=== PATIENT | female | born 1935 | race Caucasian/White ===

== ENCOUNTER 2019-03-25 11:06 | Emergency (ER) | payer OTHER ==
[2019-03-25] MEDS ORDERED: ACETAMINOPHEN 325 MG TABLET ONE (12:29)
[2019-03-25] MEDS ORDERED: TETANUS & DIPHTHERIA TOX,ADULT 0.5 ML VIAL ONE (12:29)
--- NOTE | 2019-03-25 13:10 | RAD REPORT ---
EXAM DESCRIPTION: RAD - Foot Left 3 View - 03/25/2019 12:57 pm CLINICAL HISTORY: Left Foot pain FINDINGS: Mildly displaced fractures involve the bases of the second, third fourth metatarsals. Small bony density lies adjacent to medial cuneiform bone which may represent a small avulsion fractu re No dislocation noted. Bones are osteoporotic
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
[2019-03-25 14:28] VITALS: BP 128/78; TEMP 97.8; O2SAT 99
== END 2019-03-25 14:19 | disposition home or self-care (01) ==
LOC: ER 11:06
PROC: 2W3RX1Z Immobilization of Left Lower Leg using Splint (ICD-10-PCS; principal; 2019-03-25)
DX: S92.322A Displaced fracture of second metatarsal bone, left foot, initial encounter for closed fracture (principal); S92.332A Displaced fracture of third metatarsal bone, left foot, initial encounter for closed fracture; S92.342A Displaced fracture of fourth metatarsal bone, left foot, initial encounter for closed fracture; V09.20XA Pedestrian injured in traffic accident involving unspecified motor vehicles, initial encounter; Y93.9 Activity, unspecified; Y92.89 Other specified places as the place of occurrence of the external cause; Z88.0 Allergy status to penicillin; Z88.6 Allergy status to analgesic agent
CPT/HCPCS: 90471; 90714; 99284

== ENCOUNTER 2024-03-05 19:13 | Emergency (ER) | payer OTHER ==
[2024-03-05] MEDS ORDERED: NA CHLORIDE 0.9% 1,000 ML ONE (19:34)
[2024-03-05 19:36] LABS: Absolute Basophils 0.1 K/uL (0-0.5); Absolute Eosinophils 0.1 K/uL (0-0.5); Absolute Lymphocytes (CBC) 1.5 K/uL (0.7-4.9); Absolute Monocytes 0.9 K/uL (0.1-1.3); Absolute Neutrophil 6.7 K/uL (1.8-8.0); Basophils % 0.6 % (0-1.3); Eosinophils % 1.2 % (0-4.4); Hematocrit 38.1 % (36.0-45.0); Hemoglobin 13.1 g/dL (12.0-15.0); Lymphocytes % 16.6 % (15.3-44.8); MCH 32.7 pg (27.0-35.0); MCHC 34.4 g/dL (32.0-36.0); MPV 7.6 fL (7.6-11.3); Monocytes % 9.5 % (3.3-12.3); Neutrophils % 72.1 % (41.7-73.7); Platelets 311 thou/uL (152-406); RBC Red Blood Cell Count 4.01 M/uL (3.86-4.86)
[2024-03-05 19:55] LABS: Albumin 3.7 g/dL (3.4-5.0); Albumin/Globulin Ratio 1.3 (1.1-1.8); Anion Gap 8.6 mEq/L (5.0-15.0); Bilirubin Direct 0.2 mg/dL (0-0.2); Bilirubin Indirect, Calculated 0.6 mg/dL (0.2-0.8); Bilirubin Total 0.8 mg/dL (0.2-1.0); Globulin 2.8 g/dL (2.3-3.5); Potassium 3.6 mEq/L (3.5-5.1); Protein, Total 6.5 g/dL (6.4-8.2); Troponin High Sensitivity 11.4 pg/mL (<58.9)
[2024-03-05 20:36] LABS: Specific Gravity 1.029 (1.005-1.030); Sqamous Epithelial <5 /HPF (None Seen); Urine Bacteria None Seen /HPF (<20); Urine Bilirubin NEGATIVE (Negative); Urine Blood Negative (Negative); Urine Clarity Extremely Turbid (Clear); Urine Color Yellow (Yellow); Urine Crystals Unidentified Few /HPF (None Seen); Urine Culture Reflex Order NOT NEEDED; Urine Glucose NEGATIVE (Negative); Urine Ketones TRACE (Negative); Urine Micro Reflex YN NO BILL MICROSCOPIC; Urine Mucus 3+ /HPF (None Seen); Urine Nitrite NEGATIVE (Negative); Urine Protein 2+ (Negative); Urine RBC <5 /HPF (None Seen); Urine Urobilinogen 1+ (Normal); Urine WBC <5 /HPF (<5); Urine Yeast (Budding) Trace /HPF (None Seen); Urine pH 5.5 (5.0-7.0)
--- NOTE | 2024-03-05 21:29 | RAD REPORT ---
EXAMINATION: ONE VIEW CHEST XR CLINICAL INDICATION: Female, 89 years old.,near syncope TECHNIQUE: Frontal chest projection is submitted. Examination is limited by patient positioning and t echnique. COMPARISON: No prior exam. FINDINGS: The lungs are well inflated and clear. Elevation of the right hemidiaphragm. No pneumothorax or sizab le effusion. The heart is normal in size. Mediastinal contours are unremarkable. IMPRESSION: No acute intrathoracic abnormalities.
--- NOTE | 2024-03-05 21:31 | RAD REPORT ---
EXAM: CT Head Brain Wo Cont HISTORY: ams COMPARISON: None TECHNIQUE: Multiple contiguous axial images were obtained for a CT of the brain without contrast. Sag ittal and coronal reformats were performed. One or more of the following dose reduction techniques were used: Automated exposure control, adjus tment of the mA and kV according to patient size, and iterative reconstruction. Unless otherwise specified, incidental findings do not require dedicated imaging follow-up. FINDINGS: No evidence of hydrocephalus, intracranial hemorrhage, or extra-axial fluid collection. Mild brain atrophy with mild periventricular and deep white matter chronic microvascular ischemic ch anges present. The calvarium is intact. The visualized paranasal sinuses and mastoid air cells are essentially clear . IMPRESSION: No evidence of acute intracranial abnormality.
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
--- NOTE | 2024-03-05 22:41 | EDPHYS ---
Physician Documentation [facility] Name: Aurora Hernandez Age: 89 yrs Sex: Female : 1935 Arrival Date: 03/05/2024 Time: 19:13 Bed 3 Private MD: ED Physician Héctor Kathleen HPI: 03/05 19:48 This 89 yrs old Female presents to ER via EMS with complaints of Near Syncope. rt 19:48 Patient presents to the ED with near syncope. Patient had an acute onset of dizziness rt just prior to arrival. It is since completely resolved, she denies any symptoms currently. She denies falling, hitting her head and denies complete loss of consciousness. Symptoms are moderate in severity, no other aggravating or alleviating factors.. Historical: - Allergies: 19:29 Codeine; al5 19:29 Morphine; al5 19:29 PENICILLINS; al5 - PMHx: 19:29 Gout; Hyperlipidemia; Hypertension; Dementia; al5 - PSHx: 19:29 hysterectomy (Hypertension); al5 - Immunization history:: Adult Immunizations up to date. - Infectious Disease History:: Denies. - Social history:: Smoking status: Patient denies any tobacco usage or history of. - Family history:: not pertinent. ROS: 19:48 Constitutional: Negative for fever, chills, and weight loss, Cardiovascular: Negative rt for chest pain, palpitations, and edema, Respiratory: Negative for shortness of breath, cough, wheezing, and pleuritic chest pain, Skin: Negative for injury, rash, and discoloration, Psych: Negative for depression, anxiety, suicide ideation, homicidal ideation, and hallucinations, 19:48 Neuro: Positive for near syncope, Negative for loss of consciousness, Exam: 19:48 Constitutional: This is a well developed, well nourished patient who is awake, alert, rt and in no acute distress. Head/Face: Normocephalic, atraumatic. Chest/axilla: Normal chest wall appearance and motion. Nontender with no deformity. No lesions are appreciated. Cardiovascular: Regular rate and rhythm with a normal S1 and S2. No gallops, murmurs, or rubs. Normal PMI, no JVD. No pulse deficits. Respiratory: Lungs have equal breath sounds bilaterally, clear to auscultation and percussion. No rales, rhonchi or wheezes noted. No increased work of breathing, no retractions or nasal flaring. Abdomen/GI: Soft, non-tender, with normal bowel sounds. No distension or tympany. No guarding or rebound. No evidence of tenderness throughout. Skin: Warm, dry with normal turgor. Normal color with no rashes, no lesions, and no evidence of cellulitis. MS/ Extremity: Pulses equal, no cyanosis. Neurovascular intact. Full, normal range of motion. Neuro: Awake and alert, GCS 15, oriented to person, place, time, and situation. Cranial nerves II-XII grossly intact. Motor strength 5/5 in all extremities. Sensory grossly intact. Cerebellar exam normal. Normal gait. 19:48 ECG was reviewed by the Attending Physician. Vital Signs: 19:24 BP 109 / 66; Pulse 71; Resp 16; Temp 97.6(O); Pulse Ox 97% ; Weight 74.84 kg; Height 5 al5 ft. 4 in. ; Pain 0/10; 19:30 BP 109 / 58; Pulse 57; Resp 16; Pulse Ox 96% on R/A; al5 20:00 BP 130 / 85; Pulse 59; Resp 14; Pulse Ox 96% on R/A; al5 20:15 BP 145 / 70; Pulse 62; Resp 15; Pulse Ox 97% on R/A; al5 20:30 BP 129 / 66; Pulse 54; Resp 14; Pulse Ox 97% on R/A; al5 20:45 BP 132 / 67; Pulse 52; Resp 16; Pulse Ox 99% on R/A; al5 21:30 BP 123 / 64; Pulse 52; Resp 14; Pulse Ox 97% on R/A; al5 21:45 BP 106 / 62; Pulse 55; Resp 15; Pulse Ox 99% on R/A; al5 22:30 BP 148 / 67; Pulse 54; Resp 18; Temp 97.6; Pulse Ox 98% ; Pain 0/10; bm8 23:06 BP 148 / 86; Pulse 55; Resp 18; Temp 97.8; Pulse Ox 100% ; Pain 0/10; bm8 19:24 Body Mass Index 28.32 (74.84 kg, 162.56 cm) al5 19:24 Pain Scale: Adult al5 22:30 Pain Scale: Adult bm8 23:06 Pain Scale: Adult bm8 [place] Coma Score: 22:30 Eye Response: spontaneous(4). Motor Response: obeys commands(6). Verbal Response: bm8 oriented(5). Total: 15. 23:06 Eye Response: spontaneous(4). Motor Response: obeys commands(6). Verbal Response: bm8 oriented(5). Total: 15. MDM: 19:19 Medical Screening Exam initiated rt 23:36 Differential Diagnosis: Near syncope, dehydration, UTI, electrolyte disturbance. Data rt reviewed: vital signs, nurses notes, lab test result(s), EKG, radiologic studies. Consideration of Admission/Observation Escalation of care including admission/observation considered. 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 I considered the following discharge prescriptions or medication management in the emergency department Medications were administered in the Emergency Department. See MAR. Independent interpretation of the following test(s) in the Emergency Department CT Scan: My interpretation is No intracranial hemorrhage syndrome interpretation of CT scan images. Care significantly affected by the following chronic conditions: Hypertension. Counseling: I had a detailed discussion with the patient and/or guardian regarding the historical points, exam findings, and any diagnostic results supporting the discharge/admit diagnosis, lab results, radiology results, the need for outpatient follow up, to return to the emergency department if symptoms worsen or persist or if there are any questions or concerns that arise at home. Response to treatment: the patient's symptoms have markedly improved after treatment. 03/05 19:26 Order name: Basic Metabolic Panel; Complete Time: 19:58 rt 03/05 19:26 Order name: CBC with Diff; Complete Time: 19:58 rt 03/05 19:26 Order name: LFT's; Complete Time: 19:58 rt 03/05 19:26 Order name: Troponin HS; Complete Time: 19:58 rt 03/05 20:18 Order name: UAM; Complete Time: 20:39 rt 03/05 19:26 Order name: XRAY Chest (1 view); Complete Time: 21:35 rt 03/05 20:18 Order name: CT Head Brain wo Cont; Complete Time: 21:35 rt 03/05 19:26 Order name: EKG; Complete Time: 19:26 rt 03/05 19: Order name: Cardiac monitoring; Complete Time: rt 03/05 19: Order name: EKG - Nurse/Tech; Complete Time: rt 03/05 19: Order name: IV Saline Lock; Complete Time: rt 03/05 19: Order name: Labs collected and sent; Complete Time: rt 03/05 19: Order name: O2 Per Protocol; Complete Time: rt 03/05 19: Order name: O2 Sat Monitoring; Complete Time: rt EC:48 Rate is 67 beats/min. Rhythm is regular, Normal Sinus Rhythm with Left bundle branch rt block. Left axis deviation noted. DE interval is normal. QRS interval is normal. QT interval is normal. No Q waves. Administered Medications: Drug: NS 0.9% IV 1000 ml IV at 1000 ml once; to be given as a bolus over 60 minutes al5 Route: IV; Rate: 1000 ml; Site: left antecubital; 23:06 Follow up: Response: No adverse reaction; IV Status: Completed infusion; IV Intake: bm8 1000ml Disposition Summary: 03/05/24 22:40 Discharge Ordered Notes: Location: Home rt Problem: new rt Symptoms: have improved rt Condition: Stable rt Diagnosis - Syncope Near rt Followup: rt - With: Private Physician - When: 2 - 3 days - Reason: Discharge Instructions: - Discharge Summary Sheet rt - Near-Syncope rt Forms: - Medication Reconciliation Form rt - Antibiotic Education rt - Prescription Opioid Use rt - Patient Portal Instructions rt - Leadership Thank You Letter rt Signatures: Dispatcher [employer] Héctor Velazquez MD MD rt Pati Jalloh, RN RN al5 Miguel Rodriguez RN bm8
[2024-03-06 00:33] VITALS: TEMP 97.6
[2024-03-06 00:43] VITALS: BP 148/67; O2SAT 98
--- NOTE | 2024-03-08 10:07 | EKG ---
Test Date: 2024-03-05 Test Time: 19:21:04 Civil Engineering Draftsperson: [place]ON MEASUREMENT RESULTS: Intervals: Rate: 67 NV: 156 QRSD: 122 QT: 450 QTc: 475 [place]: P: 63 NV: 156 QRS: -57 T: 106 INTERPRETIVE STATEMENTS: Normal sinus rhythm with sinus arrhythmia Left axis deviation Left bundle branch block Abnormal ECG Compared to ECG 12/01/2014 12:32:34 Left-axis deviation now present Left bundle-branch block now present T-wave abnormality no longer present Possible ischemia no longer present Electronically Signed On 03-08-24 10:06:38 RETAIL ASSISTANT MANAGER by Balta Espino
== END 2024-03-05 23:08 | disposition home or self-care (01) ==
LOC: ER 19:13
DX: R55 Syncope and collapse (principal); I10 Essential (primary) hypertension; E78.5 Hyperlipidemia, unspecified
CPT/HCPCS: 85025; 81001; 80048; 36415; 80076; 84484; 70450; 71045; J7030; 93005

== ENCOUNTER 2024-04-11 13:27 | Emergency (ER) | payer OTHER ==
[2024-04-11 14:49] LABS: Absolute Basophils 0.1 K/uL (0-0.5); Absolute Eosinophils 0.1 K/uL (0-0.5); Absolute Lymphocytes (CBC) 1.7 K/uL (0.7-4.9); Absolute Monocytes 1.4 K/uL (0.1-1.3); Absolute Neutrophil 9.5 K/uL (1.8-8.0); Basophils % 0.5 % (0-1.3); Eosinophils % 0.8 % (0-4.4); Hematocrit 42.2 % (36.0-45.0); Hemoglobin 13.8 g/dL (12.0-15.0); Lymphocytes % 13.4 % (15.3-44.8); MCH 31.5 pg (27.0-35.0); MCHC 32.8 g/dL (32.0-36.0); MCV 95.9 fL (80-100); MPV 8.2 fL (7.6-11.3); Monocytes % 11.2 % (3.3-12.3); Neutrophils % 74.1 % (41.7-73.7); Platelets 318 thou/uL (152-406); Red Cell Distribution Width 14.3 % (12.1-15.2)
[2024-04-11 14:52] LABS: Protime INR 0.98
--- NOTE | 2024-04-11 14:52 | RAD REPORT ---
EXAM: Chest Single View HISTORY: PAIN COMPARISON: 03/05/2024 FINDINGS: LUNGS/PLEURA: The lungs are clear. No pleural effusions or pneumothorax. No pulmonary edema. Similar elevated right hemidiaphragm MEDIASTINUM: The mediastinal silhouette is within normal limits. CARDIAC: The cardiac silhouette is within normal limits. UPPER ABDOMEN: No significant abnormality. BONES: No acute abnormality. LINES/TUBES/OTHER: Surgical clips overlie the right hemithorax. IMPRESSION: No evidence of acute cardiopulmonary disease.
[2024-04-11 15:06] LABS: Anion Gap 8.4 mEq/L (5.0-15.0); Potassium 3.4 mEq/L (3.5-5.1); Troponin High Sensitivity 11.3 pg/mL (<58.9)
[2024-04-11 17:03] LABS: Specific Gravity > 1.030 (1.005-1.030); Sqamous Epithelial <5 /HPF (None Seen); Urine Bacteria <20 /HPF (<20); Urine Bilirubin 1+ (Negative); Urine Blood Trace (Negative); Urine Clarity Extremely Turbid (Clear); Urine Color Yellow (Yellow); Urine Crystals Unidentified Few /HPF (None Seen); Urine Culture Reflex Order REFLEXED; Urine Glucose NEGATIVE (Negative); Urine Ketones NEGATIVE (Negative); Urine Micro Reflex YN NO BILL MICROSCOPIC; Urine Mucus Slight /HPF (None Seen); Urine Nitrite NEGATIVE (Negative); Urine Protein 1+ (Negative); Urine RBC 21-50 /HPF (None Seen); Urine Urobilinogen 1+ (Normal); Urine WBC >50 /HPF (<5); Urine WBC Clump Rare /HPF (None Seen)
[2024-04-11 17:04] LABS: Urine Yeast (Budding) Occasional /HPF (None Seen)
[2024-04-11] MEDS ORDERED: CEFTRIAXONE 1000 MG/VIAL ONE (17:28)
[2024-04-11] MEDS ORDERED: NA CHLORIDE 0.9% 1,000 ML ONE (17:28)
--- NOTE | 2024-04-11 18:23 | RAD REPORT ---
EXAMINATION: CT HEAD WITHOUT CONTRAST CLINICAL INDICATION: Female, 89 years old.TRAUMA TECHNIQUE: Axial CT images from the skull base to the vertex without intravenous contrast. Coronal an d sagittal reformatted images were created from the data set. One or more of the following dose reduction techniques were used: Automated exposure control, adjustment of the mA and/or kV according to patient size, and/or iterative reconstruction. Unless otherwise specified, incidental findings do not require dedicated imaging follow-up. [id number]. COMPARISON: 03/05/2024 FINDINGS: INTRACRANIAL: No acute intracranial hemorrhage. No hydrocephalus. No mass effect or midline shift. Mi ld chronic small vessel ischemic changes.Mild cerebral atrophy. VASCULATURE: No visualized abnormalities in the arteries or dural venous sinuses. SCALP/SKULL: Right forehead hematoma. SINUSES: The visualized paranasal sinuses and mastoid air cells are predominantly clear. IMPRESSION: No acute intracranial abnormality. No skull fracture.
--- NOTE | 2024-04-11 18:27 | RAD REPORT ---
EXAMINATION: CT CERVICAL SPINE WITHOUT CONTRAST CLINICAL INDICATION: Female, 89 years old. PAIN TECHNIQUE: Axial CT images through the cervical spine were obtained without intravenous contrast. Sag ittal and coronal reformatted images were created from the data set. One or more of the following dose reduction techniques were used: Automated exposure control, adjustment of the mA and/or kV accor ding to patient size, and/or iterative reconstruction. Unless otherwise specified, incidental findings do not require dedicated imaging follow-up. [id number]. COMPARISON: No prior exam. FINDINGS: ALIGNMENT: 2 mm anterolisthesis of C4 on C5 which is likely related to degenerative changes. BONE: Vertebral body heights are maintained. No aggressive osseous lesions. DISCS: Moderate disc height loss at C5-6. LEVELS: Multilevel cervical spondylosis with varying degrees of neural foraminal narrowing which is m oderate on the left at C3-4 and on the left at C5-6. Milder neural foraminal narrowing is present bilaterally. SOFT TISSUE: No significant abnormalities in the soft tissue of the neck. The visualized lung apices are clear. Carotid artery calcifications. IMPRESSION: No acute fracture or traumatic malalignment of the cervical spine.
--- NOTE | 2024-04-11 18:33 | RAD REPORT ---
EXAMINATION: CT LUMBAR SPINE WITHOUT CONTRAST CLINICAL INDICATION: Female, 89 years old. PAIN TECHNIQUE: Axial CT images were obtained through the lumbar spine in soft tissue and bone windows wit hout intravenous contrast. Coronal and Sagittal reformatted images were created from the data set. One or more of the following dose reduction techniques were used: Automated exposure control, adjustm ent of the mA and/ or kV according to patient size, and/or iterative reconstruction. Unless otherwise specified, incidental findings do not require dedicated imaging follow-up. [id number]. COMPARISON: No prior exam. FINDINGS: For purposes of this dictation, it is assumed that there are 5 non rib-bearing lumbar type vertebrae, and the most caudal fully segmented lumbar vertebra is labeled L5. ALIGNMENT: Grade 1 anterolisthesis of L5 on S1. BONES: Inferior endplate deformity at L1 with approximately 30% loss of height inferiorly. DISCS: Moderate to severe disc height loss is present L2-3, L4-5, and L5-S1. Mild disc height loss at L1-2 and L3-4. LEVELS: Multilevel degenerative changes with varying degrees of neural foraminal narrowing. This is s evere on the left at L4-5 and L5-S1 and on the right is moderate to severe at L1-2 and L2-3. There is at least moderate central spinal stenosis at L2-3. Mild central spinal stenosis present L1-2. No h igh-grade central spinal stenosis. SOFT TISSUE: Bilateral renal lesions of varying complexity. Is incompletely evaluated without IV cont rast. Aortic atherosclerosis. IMPRESSION: Compression fracture at T12 involving the inferior endplate with up to 30% loss of height. This fract ure may be subacute however correlate with site and duration of pain.
--- NOTE | 2024-04-11 18:45 | EDPHYS ---
Physician Documentation [facility] Name: Aurora Hernandez Age: 89 yrs Sex: Female : 1935 Arrival Date: 04/11/2024 Time: 13:27 Bed 27 Private MD: ED Physician Susana Hernandez HPI: 04/11 18:11 This 89 yrs old Female presents to ER via Wheelchair with complaints of Fall gb1 Injury, Low Back Pain, Decreased Appetite. 18:11 89-year-old female with history of multiple falls at home. She is history of dementia, gb1 gout hyperlipidemia and hypertension. She is currently on Plavix. Patient still members do live with her and states that they lost last had a fall on Thursday or prior to. Patient has a history of abnormal mental status due to dementia. No fevers, chills or neck pain. Patient has been having low back pain and also not eating as much recently.. Historical: - Allergies: 14:21 Codeine; jl7 14:21 Morphine; jl7 14:21 PENICILLINS; jl7 - PMHx: 14:21 Dementia; Gout; Hyperlipidemia; Hypertension; jl7 - PSHx: 14:21 hysterectomy (en); jl7 - Immunization history: Last tetanus immunization: unknown. - Infectious Disease History:: Denies. - Social history:: Smoking status: Patient denies any tobacco usage or history of. Exam: 18:11 Constitutional: This is a well developed, well nourished patient who is awake, alert, gb1 and in no acute distress. Head/Face: Patient's entire face has scattered bruising in multiple stages of healing. She has periorbital bilateral hematomas, she has supra and infraorbital swelling as well. The right temporal area on the frontal forehead is also with hematoma. She has some buccal swelling as well on the left and the right. She does have raccoon eyes as well on exam. Neck: Trachea midline, no thyromegaly or masses palpated, and no cervical lymphadenopathy. Supple, full range of motion without nuchal rigidity, or vertebral point tenderness. No Meningismus. Chest/axilla: Normal chest wall appearance and motion. Nontender with no deformity. No lesions are appreciated. Cardiovascular: Regular rate and rhythm with a normal S1 and S2. No gallops, murmurs, or rubs. Normal PMI, no JVD. No pulse deficits. Respiratory: Lungs have equal breath sounds bilaterally, clear to auscultation and percussion. No rales, rhonchi or wheezes noted. No increased work of breathing, no retractions or nasal flaring. Abdomen/GI: Soft, non-tender, with normal bowel sounds. No distension or tympany. No guarding or rebound. No evidence of tenderness throughout. Skin: Warm, dry with normal turgor. Normal color with no rashes, no lesions, and no evidence of cellulitis. Vital Signs: 14:16 BP 119 / 73; Pulse 57; Resp 17; Temp 97.4; Pulse Ox 100% ; Weight 67.59 kg; Height 5 jl7 ft. 3 in. ; 15:00 BP 126 / 84; Pulse 60; Resp 22; Pulse Ox 93% on R/A; me1 16:00 BP 115 / 77; Pulse 61; Resp 19; Pulse Ox 94% on R/A; me1 17:00 BP 133 / 79; Pulse 62; Resp 20; Pulse Ox 96% on R/A; me1 18:00 BP 146 / 76; Pulse 63; Resp 18; Pulse Ox 96% on R/A; me1 18:30 BP 154 / 74; Pulse 55; Resp 17; Temp 98.5; Pulse Ox 96% ; me1 14:16 Body Mass Index 26.39 (67.59 kg, 160.02 cm) jl7 [place] Coma Score: 14:16 Eye Response: to voice(3). Motor Response: obeys commands(6). Verbal Response: jl7 oriented(5). Total: 14. Trauma Score (Adult): 14:16 Eye Response: to voice(0); Verbal Response: oriented(1); Motor Response: obeys jl7 commands(2); Systolic BP: > 89 mm Hg(4); Respiratory Rate: 10 to 29 per min(4); [place] Score: 14; Trauma Score: 11 MDM: 14:17 Medical Screening Exam initiated gb1 18:41 Data reviewed: vital signs, nurses notes, lab test result(s), CBC, electrolytes, gb1 radiologic studies, CT scan. ED course: 89-year-old female status post multiple recent falls at home with history of gout, dementia, hyperlipidemia and hypertension here with a concern for change in the baseline of her mental status. Patient does have a UTI today but does not appear septic. She has a mild JAYLA worse from her baseline to 1.55 today. I will recommend the patient be hydrated and I will prescribe ciprofloxacin for treatment of UTI at home. I given her remembers explicit return precautions to which are compliant with her discharge home today. Patient does not appear to have any signs of acute intracranial injury despite being on Plavix and with multiple falls. I did discuss with the family the importance of discussing the risk versus benefit ratio of having the patient on Plavix at this time due to her increased risk of falls.. 04/11 14:19 Order name: Basic Metabolic Panel; Complete Time: 15:14 gb1 04/11 14:19 Order name: CBC with Diff; Complete Time: 15:14 gb1 04/11 14:19 Order name: NT PRO-BNP; Complete Time: 15:14 gb1 04/11 14:19 Order name: PT-INR; Complete Time: 15:14 gb1 04/11 14:19 Order name: Troponin HS; Complete Time: 15:14 gb1 04/11 14:19 Order name: UAM; Complete Time: 17:08 gb1 04/11 17:08 Order name: Urine Culture EDMS 04/11 14:19 Order name: XRAY Chest (1 view); Complete Time: 15:14 gb1 04/11 17:21 Order name: CT Head Brain wo Cont; Complete Time: 18:39 gb1 04/11 17:21 Order name: CT C Spine; Complete Time: 18:39 gb1 04/11 17:21 Order name: CT Lumbar Spine Wo Con; Complete Time: 18:39 gb1 04/11 14:19 Order name: EKG; Complete Time: 14:19 gb1 04/11 14:19 Order name: Cardiac monitoring; Complete Time: 15:27 gb1 04/11 14:19 Order name: EKG - Nurse/Tech; Complete Time: 15:27 gb1 04/11 14:19 Order name: IV Saline Lock; Complete Time: 14:41 gb1 04/11 14:19 Order name: Labs collected and sent; Complete Time: 14:41 gb1 04/11 14:19 Order name: O2 Per Protocol; Complete Time: 14:41 gb1 04/11 14:19 Order name: O2 Sat Monitoring; Complete Time: 14:41 gb1 Administered Medications: 17:35 Drug: Rocephin IV 1 grams IV at bolus once; Given slow IV push per pharmacy me1 instructions Route: IV; Rate: bolus; Site: right antecubital; 17:37 Follow up: Response: No adverse reaction; IV Status: Completed infusion me1 17:36 Drug: NS 0.9% IV 1000 ml IV at 1 bolus Per protocol; to be given as a bolus over 60 me1 minutes Route: IV; Rate: 1 bolus; Site: right antecubital; 18:55 Follow up: Response: No adverse reaction; IV Status: Completed infusion; IV Intake: me1 1000ml Disposition Summary: 04/11/24 18:44 Discharge Ordered Notes: Location: Home gb1 Problem: an acute exacerbation gb1 Symptoms: are unchanged gb1 Condition: Fair gb1 Diagnosis - Fall due to bumping against object gb1 - Repeated falls gb1 - Contusion of eyeball and orbital tissues gb1 - Abrasion of other part of head gb1 - Wedge compression fracture of T11-T12 vertebra gb1 - UTI/ Urinary tract infection, site not specified gb1 Followup: gb1 - With: Private Physician - When: - Reason: Recheck today's complaints Discharge Instructions: - Discharge Summary Sheet gb1 - Spinal Compression Fracture gb1 - Hematoma, [id number] gb1 - Fall Prevention in the Home, Adult gb1 - Urinary Tract Infection, Adult gb1 Forms: - Medication Reconciliation Form gb1 - Antibiotic Education gb1 - Prescription Opioid Use gb1 - Patient Portal Instructions gb1 - Leadership Thank You Letter gb1 Prescriptions: - Cipro 500 mg Oral Tablet - take 1 tablet ORAL route every 12 hours for 10 days; 20 tablet; Refills: 0, gb1 Product Selection Permitted Signatures: Dispatcher [employer] Magaly Olivo RN RN jl7 Emily Alicia RN RN me1 Susana Hernandez MD MD gb1
--- NOTE | 2024-04-11 18:45 | ER ---
Nurse's Notes [facility] Name: Aurora Hernandez Age: 89 yrs Sex: Female : 1935 Arrival Date: 04/11/2024 Time: 13:27 Bed 27 Private MD: Diagnosis: Fall due to bumping against object;Repeated falls;Contusion of eyeball and orbital tissues;Abrasion of other part of head;Wedge compression fracture of T11-T12 vertebra;UTI/ Urinary tract infection, site not specified Presentation: 04/11 14:16 Chief complaint: Patient's son or daughter states: She has fallen 3 times this week, jl7 last fall was Thursday night, hit head on coffee table. Reports pt is lethargic and not acting normal. A\T\O x 3 in triage but drowsy, purple bruising noted to face. Pt reports back pain from previous fall a couple weeks ago. Care prior to arrival: None. Mechanism of Injury: Fall from standing position. an unknown distance. Trauma event details: Injury occurred in the [facility], Injury occurred: at home. Injury occurred: April 09, 2024. 14:16 Acuity: HARVEY 2 jl7 14:16 Method Of Arrival: Wheelchair jl7 14:21 Coronavirus screen: At this time, the client does not indicate any symptoms associated jl7 with coronavirus-19. Ebola Screen: No symptoms or risks identified at this time. Initial Sepsis Screen: Does the patient meet any 2 criteria? No. Patient's initial sepsis screen is negative. Does the patient have a suspected source of infection? No. Patient's initial sepsis screen is negative. Risk Assessment: Do you want to hurt yourself or someone else? Patient reports no desire to harm self or others. Onset of symptoms was April 09, 2024. Trauma Activation: Not Applicable Physician: ED Physician; Name: ; Notified At: ; Arrived At: Physician: General Surgeon; Name: ; Notified At: ; Arrived At: Physician: Radiology; Name: ; Notified At: ; Arrived At: Physician: Respiratory; Name: ; Notified At: ; Arrived At: Physician: Lab; Name: ; Notified At: ; Arrived At: Historical: - Allergies: 14:21 Codeine; jl7 14:21 Morphine; jl7 14:21 PENICILLINS; jl7 - PMHx: 14:21 Dementia; Gout; Hyperlipidemia; Hypertension; jl7 - PSHx: 14:21 hysterectomy (en); jl7 - Immunization history: Last tetanus immunization: unknown. - Infectious Disease History:: Denies. - Social history:: Smoking status: Patient denies any tobacco usage or history of. Screenin:16 Abuse screen: Denies threats or abuse. Denies injuries from another. Tuberculosis jl7 screening: No symptoms or risk factors identified. 14:30 [facility] ED Fall Risk Assessment (Adult) History of falling in the last 3 months, me1 including since admission Yes- fall prone (multiple falls) (3 pts) Confusion or Disorientation Yes (5 pts) Intoxicated or Sedated No (0 pts) Impaired Gait Yes (1 pt) Mobility Assist Device Used Yes (1 pt) Altered Elimination No (0 pt) Score/Fall Risk Level 3 or more points = High Risk Maintained a safe environment, Hourly rounding (assess needs \T\ fall precautionary measures) done, Used ambulatory aids as needed (educated on \T\ assisted with). Nutritional screening: No deficits noted. Primary Survey: 14:16 NO uncontrolled hemorrhage observed. A: The client responds to verbal stimuli. Airway: jl7 patent. Breathing/Chest: Spontaneous respiratory effort, equal unlabored respirations, breath sounds clear bilaterally, regular pattern, symmetrical chest rise and fall. Circulation: No external hemorrhage present. Regular and strong central pulse, skin warm/dry/normal color. Disability Client responds to verbal stimuli. Exposure/Environment: Obvious injury(ies) are noted at this time: swelling to forehead, bruising to face. Assessment: 14:16 General: Appears in no apparent distress. uncomfortable, Behavior is cooperative, jl7 drowsy. Pain: Complains of pain in back. Neuro: Level of Consciousness is obeys commands, drowsy. Oriented to person, place, time, situation. Derm: Bruising that is dark purple, on face. 14:30 General: Appears in no apparent distress. uncomfortable, well groomed, well developed, me1 Behavior is calm, cooperative, appropriate for age, Reports She has fallen 3 times this week, last fall was Thursday night, hit head on coffee table. Reports pt is lethargic and not acting normal. A\T\O x 3 in triage but drowsy, purple bruising noted to face. Pt reports back pain from previous fall a couple weeks ago. Pain: Complains of pain in diaphragm and face and back Pain does not radiate. Pain currently is 4 out of 10 on a pain scale. Quality of pain is described as aching, Pain began at variable times with falls over the past week. Is continuous. Neuro: Level of Consciousness is awake, alert, obeys commands, Oriented to person, place, situation, Reports dementia with intermittent confusion and states she is very forgetful. Cardiovascular: Patient's skin is warm and dry. Respiratory: Airway is patent Respiratory effort is even, unlabored, Respiratory pattern is regular, symmetrical. GI: No signs and/or symptoms were reported involving the gastrointestinal system. : No signs and/or symptoms were reported regarding the genitourinary system. EENT: No signs and/or symptoms were reported regarding the EENT system. Derm: Skin is intact, is healthy with good turgor, Skin is pink, warm \T\ dry. Musculoskeletal: Reports pain in diaphragm and face and back. Injury Description: She has fallen 3 times this week, last fall was Thursday night, hit head on coffee table. Reports pt is lethargic and not acting normal. A\T\O x 3 in triage but drowsy, purple bruising noted to face. Pt reports back pain from previous fall a couple weeks ago. 19:13 Reassessment: Discharge delayed waiting on family to come pick patient up. She is a me1 fall risk and cannot go to lobby. Vital Signs: 14:16 BP 119 / 73; Pulse 57; Resp 17; Temp 97.4; Pulse Ox 100% ; Weight 67.59 kg; Height 5 jl7 ft. 3 in. ; 15:00 BP 126 / 84; Pulse 60; Resp 22; Pulse Ox 93% on R/A; me1 16:00 BP 115 / 77; Pulse 61; Resp 19; Pulse Ox 94% on R/A; me1 17:00 BP 133 / 79; Pulse 62; Resp 20; Pulse Ox 96% on R/A; me1 18:00 BP 146 / 76; Pulse 63; Resp 18; Pulse Ox 96% on R/A; me1 18:30 BP 154 / 74; Pulse 55; Resp 17; Temp 98.5; Pulse Ox 96% ; me1 14:16 Body Mass Index 26.39 (67.59 kg, 160.02 cm) jl7 [place] Coma Score: 14:16 Eye Response: to voice(3). Motor Response: obeys commands(6). Verbal Response: jl7 oriented(5). Total: 14. Trauma Score (Adult): 14:16 Eye Response: to voice(0); Verbal Response: oriented(1); Motor Response: obeys jl7 commands(2); Systolic BP: > 89 mm Hg(4); Respiratory Rate: 10 to 29 per min(4); [place] Score: 14; Trauma Score: 11 ED Course: 13:29 Patient arrived in ED. ra3 13:30 Susana Hernandez MD is Attending Physician. gb1 14:16 Patient has correct armband on for positive identification. jl7 14:16 Patient maintains SpO2 saturation greater than 95% on room air. jl7 14:19 Triage completed. jl7 14:21 Arm band placed on right wrist. jl7 14:26 Emily Alicia, RN is Primary Nurse. me1 14:30 Provided Education on: POC. Patient and children verbalized understanding.. Client me1 placed on continuous cardiac and pulse oximetry monitoring. NIBP monitoring applied. mechanic foreman on. Pulse ox on. NIBP on. 14:41 Basic Metabolic Panel Sent. me1 14:41 CBC with Diff Sent. me1 14:41 NT PRO-BNP Sent. me1 14:41 PT-INR Sent. me1 14:41 Troponin HS Sent. me1 14:41 Initial lab(s) drawn, by nv, sent to lab. Inserted saline lock: 22 gauge in right me1 antecubital area, using aseptic technique. 14:44 XRAY Chest (1 view) In Process Unspecified. EDMS 15:27 EKG done, by ED staff, reviewed by Susana Hernandez MD. me1 16:49 UAM Sent. me1 16:49 No provider procedures requiring assistance completed. Urine collected: clean catch me1 specimen, cloudy, deja colored. 17:36 Urine Culture Sent. me1 18:17 CT Head Brain wo Cont In Process Unspecified. EDMS 18:18 CT C Spine In Process Unspecified. EDMS 18:18 CT Lumbar Spine Wo Con In Process Unspecified. EDMS 18:57 IV discontinued, intact, bleeding controlled, No redness/swelling at site. Pressure me1 dressing applied. Administered Medications: 17:35 Drug: Rocephin IV 1 grams IV at bolus once; Given slow IV push per pharmacy me1 instructions Route: IV; Rate: bolus; Site: right antecubital; 17:37 Follow up: Response: No adverse reaction; IV Status: Completed infusion me1 17:36 Drug: NS 0.9% IV 1000 ml IV at 1 bolus Per protocol; to be given as a bolus over 60 me1 minutes Route: IV; Rate: 1 bolus; Site: right antecubital; 18:55 Follow up: Response: No adverse reaction; IV Status: Completed infusion; IV Intake: me1 1000ml Medication: 14:30 VIS not applicable for this client. me1 Intake: 18:55 IV: 1000ml; Total: 1000ml. me1 Outcome: 18:44 Discharge ordered by . gb1 19:43 Discharged to home via wheelchair, with family, me1 19:43 Condition: stable 19:43 Discharge instructions given to patient, family, Instructed on discharge instructions, follow up and referral plans. medication usage, Demonstrated understanding of instructions, follow-up care, medications, Prescriptions given X 1, 19:44 Patient left the ED. me1 Signatures: Dispatcher [employer] EDMagaly Collins RN RN jl7 Emily Alicia RN RN me1 Susana Hernandez MD MD gb1 Umm Wong ra3 Corrections: (The following items were deleted from the chart) 14:28 14:16 Chief complaint: Patient's son or daughter states: She has fallen 3 times this me1 week, last fall was Satur night, hit head on coffee table. Reports pt is lethargic and not acting normal. A\T\O x 3 in triage but drowsy, purple bruising noted to face. Pt reports back pain from previous fall a couple weeks ago. jl7 17:22 14:16 Chief complaint: Patient's son or daughter states: She has fallen 3 times this me1 week, last fall was Satur night, hit head on coffee table. Reports pt is lethargic and not acting normal. A\T\O x 3 in triage but drowsy, purple bruising noted to face. Pt reports back pain from previous fall a couple weeks ago. me1
[2024-04-12 01:23] VITALS: O2SAT 96
[2024-04-12 01:26] VITALS: BP 154/74; TEMP 98.5
--- NOTE | 2024-04-14 12:11 | EKG ---
Test Date: 2024-04-11 Test Time: 15:20:33 Latent Print Examiner: MEASUREMENT RESULTS: Intervals: Rate: 65 VA: 138 QRSD: 84 QT: 460 QTc: 478 [place]: P: 68 VA: 138 QRS: -18 T: 71 INTERPRETIVE STATEMENTS: Sinus rhythm with premature atrial complexes with aberrant conduction ST & T wave abnormality, consider anterior ischemia Prolonged QT Abnormal ECG Compared to ECG 03/05/2024 19:21:04 Atrial premature complex(es) now present Aberrant conduction of supraventricular beat(s) now present ST (T wave) deviation now present Possible ischemia now present Prolonged QT interval now present Sinus arrhythmia no longer present Left-axis deviation no longer present Left bundle-branch block no longer present Electronically Signed On 04-14-24 12:10:29 LEVER OPERATOR by Balta Espino
== END 2024-04-11 19:44 | disposition home or self-care (01) ==
LOC: ER 13:27
DX: S05.12XA Contusion of eyeball and orbital tissues, left eye, initial encounter (principal); S05.11XA Contusion of eyeball and orbital tissues, right eye, initial encounter; S00.81XA Abrasion of other part of head, initial encounter; S22.080A Wedge compression fracture of T11-T12 vertebra, initial encounter for closed fracture; N39.0 Urinary tract infection, site not specified; F03.90 Unspecified dementia, unspecified severity, without behavioral disturbance, psychotic disturbance, mood disturbance, and anxiety; E78.5 Hyperlipidemia, unspecified; I10 Essential (primary) hypertension; M10.9 Gout, unspecified; W18.30XA Fall on same level, unspecified, initial encounter; Y93.9 Activity, unspecified; Y92.019 Unspecified place in single-family (private) house as the place of occurrence of the external cause; Z91.81 History of falling; Z88.0 Allergy status to penicillin; Z88.5 Allergy status to narcotic agent
CPT/HCPCS: 96361; 93005; 87088; 85025; 81001; 87086; 80048; 36415; 85610; 84484; 83880; 72131; 70450; 72125; 71045; 96374; 99285; J7030; J0696